=== PATIENT | male | born 1975 | race Caucasian/White ===

== ENCOUNTER 2018-06-20 15:08 | Outpatient (CLI) | payer OTHER, SELFPAY ==
[2018-06-20 15:22] VITALS: BMI 41.4
[2018-06-20 15:40] VITALS: BP 135/89; PULSE 53; TEMP 36.9
[2018-06-20 15:45] LABS: Basophils % 0.2 % (0.1-2.0); Eosinophils # 0.2 K/mm3 (0.0-0.4); Eosinophils % 1.4 % (0.1-12.0); Hematocrit 44.1 % (42.0-52.0); Hemoglobin 14.7 g/dL (14.1-18.0); Lymphocytes # 1.1 K/mm3 (0.7-4.5); Lymphocytes % 10.9 K/mm3 (10-50); Mean Corpuscular HGB Conc 33.3 g/dL (31.8-35.4); Mean Corpuscular Hemoglobin 28.7 pg (27.0-31.2); Mean Corpuscular Volume 86.2 fl (80-94); Mean Platelet Volume 7.9 fl (7.4-10.4); Monocytes # 0.5 K/mm3 (0.1-1.0); Monocytes % 4.5 % (1.7-9.3); Neutrophils # 8.7 K/mm3 (1.8-7.8); Platelet Count 215 K/mm3 (142-424); Red Blood Count 5.11 M/mm3 (4.60-6.20); Red Cell Distribution Width 14.2 % (11.5-17.5); White Blood Count 10.4 K/mm3 (4.8-10.8)
[2018-06-20 15:59] LABS: Alanine Aminotransferase 36 U/L (12-78); Albumin Level 3.6 gm/dL (3.4-5.0); Albumin/Globulin Ratio 0.9 (1.1-1.8); Alkaline Phosphatase 58 U/L (46-116); Anion Gap 11.2 mEq/L (5-15); Aspartate Amino Transferase 18 U/L (15-37); Blood Urea Nitrogen 14 mg/dL (7-18); Calcium 8.8 mg/dL (8.5-10.1); Carbon Dioxide 28 mmol/L (21.0-32.0); Chloride 105 mmol/L (98-107); Creatinine Clearance Estimated 125 mL/min (0-300); Creatinine,Serum 1.55 mg/dL (0.70-1.30); Estimated Glomerular Filt Rate 49 ml/min (>60); GFR (African American) 60 ML/MIN (>60); Globulin 3.8 gm/dl (1.3-3.2); Glucose 114 mg/dL (74-106); Potassium 4.2 mmoL/L (3.5-5.1); Sodium 140 mmol/L (136-145); Total Protein,Serum 7.4 gm/dL (6.4-8.2)
[2018-06-20 16:10] VITALS: BP 165/82; PULSE 63; RESP 20
[2018-06-20 16:40] VITALS: BP 163/90; PULSE 52; RESP 18
[2018-06-20 17:10] VITALS: BP 150/97; PULSE 50; RESP 18
[2018-06-20 17:28] LABS: Microscopic, Urine URINE MICROSCOPIC (MICROSCOPIC)
[2018-06-20 17:30] LABS: Appearance,Urine CLEAR (Clear); Blood, Urine Negative (Negative); Color,Urine YELLOW (Yellow); Glucose,Urine (UA) Negative (Negative); Ketones,Urine Negative (Negative); Leukocyte Esterase,Urine Negative (Negative); Nitrate,Urine Negative (Negative); Protein,Urine Negative (Negative); Specific Gravity, Urine >= 1.030 (1.005-1.030); Urobilinogen,Urine 0.2 EU/dl (0.2)
[2018-06-20 17:40] VITALS: BP 167/78; PULSE 66; RESP 18; TEMP 36.6
[2018-06-20 17:50] LABS: Bilirubin,Urine Negative (Negative)
[2018-06-20 17:51] LABS: Bacteria,Urine 2+ /lpf; Mucus,Urine 3+ /lpf; Squamous Epithelial Cell,Urine Occasional #/hpf (0-5)
--- NOTE | 2018-06-20 18:23 | PC.NURSE ---
GAVE FLOMAX 0.4MG PO AT 1550. GAVE ZOFRAN 4MG IVP AT 1555.
== END 2018-06-20 17:50 | disposition home or self-care (01) ==
LOC: INF 15:09
PROVIDERS: PCP Internal Medicine Adolescent Medicine; Visit Provider Nurse Practitioner Family
DX: N20.0 Calculus of kidney (principal)
CPT/HCPCS: 80053; 81001; 85025; 87086; 96360; 96361; 96374; 96375; J2405

== ENCOUNTER → 2018-06-22 08:37 | Outpatient (CLI) | payer OTHER, SELFPAY ==
[2018-06-22 09:30] LABS: Basophils % 0.6 % (0.1-2.0); Eosinophils # 0.1 K/mm3 (0.0-0.4); Hematocrit 41.1 % (42.0-52.0); Hemoglobin 13.4 g/dL (14.1-18.0); Lymphocytes # 1.1 K/mm3 (0.7-4.5); Lymphocytes % 25.2 K/mm3 (10-50); Mean Corpuscular HGB Conc 32.5 g/dL (31.8-35.4); Mean Corpuscular Hemoglobin 28.4 pg (27.0-31.2); Mean Corpuscular Volume 87.3 fl (80-94); Monocytes # 0.3 K/mm3 (0.1-1.0); Monocytes % 6.6 % (1.7-9.3); Neutrophils # 2.9 K/mm3 (1.8-7.8); Neutrophils % 65.5 % (37.0-80.0); Platelet Count 177 K/mm3 (142-424); Red Cell Distribution Width 14.2 % (11.5-17.5); White Blood Count 4.4 K/mm3 (4.8-10.8)
[2018-06-22 09:38] LABS: Anion Gap 8.8 mEq/L (5-15); Blood Urea Nitrogen 16 mg/dL (7-18); Calcium 8.4 mg/dL (8.5-10.1); Carbon Dioxide 31 mmol/L (21.0-32.0); Chloride 109 mmol/L (98-107); Creatinine,Serum 1.23 mg/dL (0.70-1.30); Estimated Glomerular Filt Rate 65 ml/min (>60); GFR (African American) 78 ML/MIN (>60); Glucose 105 mg/dL (74-106); Potassium 4.8 mmoL/L (3.5-5.1); Sodium 144 mmol/L (136-145)
== END ==
PROVIDERS: PCP Nurse Practitioner Family; Visit Provider Nurse Practitioner Family
DX: N20.0 Calculus of kidney (principal)
CPT/HCPCS: 36415; 80048; 85025

== ENCOUNTER → 2019-06-10 15:02 | Outpatient (POV) | payer OTHER, SELFPAY | PROVIDERS: Visit Provider Dermatology | DX: Z00.00 Encounter for general adult medical examination without abnormal findings (principal) ==

== ENCOUNTER → 2020-10-12 15:53 | Outpatient (POV) | payer OTHER, SELFPAY | PROVIDERS: Visit Provider Dermatology | DX: Z00.00 Encounter for general adult medical examination without abnormal findings (principal) ==

== ENCOUNTER 2023-09-12 23:24 | Emergency (ER) | payer BC, SELFPAY ==
[2023-09-12 23:31] VITALS: BP 157/102; PULSE 87; RESP 18; TEMP 36.6; O2SAT 97; BMI 38.5
--- NOTE | 2023-09-12 23:32 | CT_ITS ---
PROCEDURE INFORMATION: Exam: CT Abdomen And Pelvis With Contrast Exam date and time: 09/12/2023 11:46 PM Age: 47 years old Clinical indication: Abdominal pain; Prior surgery; Surgery date: 6+ months; Surgery type: Appendectomy; Patient HX: States abd pain, pain in the center of his back. TECHNIQUE: Imaging protocol: Computed tomography of the abdomen and pelvis with contrast. Total images: 366 Radiation optimization: All CT scans at this facility use at least one of these dose optimization techniques: automated exposure control; mA and/or kV adjustment per patient size (includes targeted exams where dose is matched to clinical indication); or iterative reconstruction. Contrast material: ISOVUE; Contrast volume: 75 ml; Contrast route: INTRAVENOUS (IV); REPORTING DATA: Count of CT and Cardiac NM exams in prior 12 months: This patient has received 0 known CTs and 0 known cardiac nuclear medicine studies in the 12 months prior to the current study. COMPARISON: CR Chest 07/12/2022 10:46 PM FINDINGS: Lungs: Minor dependent bibasilar atelectasis. No airspace consolidation. Calcified bibasilar pulmonary granuloma. Heart: Normal heart size. Coronary arteries: Moderate coronary artery calcifications. Liver: Normal. No mass. Gallbladder and bile ducts: Cholelithiasis without secondary signs of acute cholecystitis. No biliary ductal dilatation. Pancreas: Normal. No ductal dilation. Spleen: Normal. No splenomegaly. Adrenal glands: Normal. No mass. Kidneys and ureters: 5 mm nonobstructing upper pole right renal calculus. No hydronephrosis. Unremarkable left kidney. 10 mm exophytic right renal cortical cyst. No ureteral stones. Stomach and bowel: Unremarkable stomach and duodenum. No ileus or bowel obstruction. Unremarkable small bowel. Unremarkable terminal ileum. Unremarkable colon. Collapsed rectum. Appendix: Status post appendectomy. Intraperitoneal space: Unremarkable. No free air. No significant fluid collection. Vasculature: Abdominal aorta is normal in caliber. Major abdominal vessels enhance appropriately. Lymph nodes: Unremarkable. No enlarged lymph nodes. Urinary bladder: Collapsed bladder. Reproductive: Nonenlarged prostate Bones/joints: No acute osseous abnormality. Mild degenerative changes thoracolumbar spine. No concerning bone lesions. Soft tissues: Minor gynecomastia. Fat containing bilateral inguinal hernias, right greater than left. IMPRESSION: 1. Cholelithiasis without secondary signs of acute cholecystitis. If acute gallbladder symptoms, recommend follow-up ultrasound. 2. Right nephrolithiasis without obstructive uropathy. 3. Moderate right and small left fat containing inguinal hernias. No bowel loop involvement. 4. Additional chronic and incidental findings. COMMENTS: Consistent with the [employer]'s Incidental Findings Committee white paper (J Am Olman Radiol 2018): Any incidental renal lesion less than 1 cm or classified as too small to characterize, or any incidental cystic renal lesion characterized as simple-appearing, is likely benign. No follow-up imaging is recommended for these lesions per consensus recommendations based on imaging criteria.
[2023-09-13 00:47] VITALS: BP 130/84; PULSE 70; RESP 18; TEMP 36.7; O2SAT 94
--- NOTE | 2023-09-13 02:02 | HMH.EDGENADL ---
Discharge Plan Disposition Patient Disposition: Home, Self-Care Condition: Good Prescriptions Prescriptions: No Action tamsulosin 0.4 MG Cap.Er.24h 0.4 mg PO HS ondansetron HCl [Zofran] 4 MG Tablet 4 mg PO Q8HP PRN (Reason: Nausea And Vomiting) Qty: 10 0RF ketorolac 10 MG Tablet 10 mg PO Q6H 5 Days Qty: 20 0RF Referrals Follow up/Referrals: Rik Celeste MD [Primary Care Provider] - See instructions Clinical Impressions Clinical Impression: Abdominal pain Instructions Patient Instructions: Acute Abdominal Pain Discharge ED Provider: Parris Yap General Adult HPI General Stated complaint: back pain, abd pain Time Seen by Provider: 09/12/23 23:26 History of Present Illness HPI narrative: 47-year-old male with no significant past medical history aside from an appendectomy who presents to the ED with complaints of right lower quad abdominal pain and right flank pain.? Patient notes that the pain started this morning and has progressively worsened through the day.? Patient describes the pain as a sharp stabbing pain.? Patient notes a decreased appetite. ?Patient endorses nausea, but no vomiting or diarrhea.? Last bowel movement this afternoon.? No dysuria, hematuria, difficulty urinating.? Patient has a history of kidney stones and notes this pain is different. Related Data Home Medications Medication Instructions Recorded Confirmed tamsulosin 0.4 mg capsule 0.4 mg PO HS Kidney stones 06/20/18 06/20/18 Previous Rx's Medication Instructions Recorded ketorolac 10 mg tablet 10 mg PO Q6H 5 days ##20 08/26/18 ondansetron HCl 4 mg tablet 4 mg PO Q8HP PRN Nausea And 08/26/18 (Zofran) Vomiting ##10 Allergies Allergy/AdvReac Type Severity Reaction Status Date / Time No Known Allergies Allergy Verified 08/26/18 08:04 [facility] Disclaimer: The information contained in this section may have been updated after the patient was seen, as this information can be updated by other users. Social History Smoking Status: Former smoker alcohol intake: never current occupational status: employed Travel in the last 8 weeks: None ROS Obtained: Yes All systems reviewed & no additional complaints except as documented Physical Exam General General appearance: alert and in no apparent distress Head Head exam: atraumatic, normocephalic and normal inspection Eye Eye exam: Present normal appearance, PERRL and EOMI; Absent scleral icterus or nystagmus ENT ENT exam: Present normal exam, mucous membranes moist and normal external ear exam Neck Neck exam: Present normal inspection, full ROM and trachea midline Chest Chest inspection: Present normal inspection and symmetric chest wall rise; Absent tenderness Respiratory Respiratory exam: Present normal lung sounds bilaterally; Absent respiratory distress, wheezes or accessory muscle use Cardiovascular Cardiovascular exam: Present regular rate, normal rhythm and normal heart sounds Abdominal Exam Abdominal exam: Present soft and tenderness (TTP in RLQ); Absent distention, guarding, rebound, rigidity, trauma, ascites or pulsatile mass exam: Present deferred Extremities Exam Extremities exam: Present normal inspection and full ROM; Absent tenderness Back Exam Back exam: Present normal inspection and full ROM; Absent tenderness Neurological Exam Neurological exam: Present alert, oriented X3, normal gait and motor sensory deficit Psychiatric Psychiatric exam: Present normal affect and normal mood Skin Skin exam: Present warm, dry and normal color Medical Decision Making Medical Records Medical records reviewed: Yes I reviewed the patient's medical records. Mati Inquiry Pt receiving controlled substance: No Lab Data Lab results reviewed: Yes I reviewed the patient's lab results. Medical Decision Narrative: In summary, 47-year-old male with no significant past medical history aside from an appendectomy who presents to the ED with
[2023-09-13 02:08] VITALS: BMI 38.5
[2023-09-13 03:06] LABS: Appearance,Urine CLEAR (Clear); Bilirubin,Urine Negative (Negative); Blood, Urine Negative (Negative); Color,Urine YELLOW (Yellow); Glucose,Urine (UA) Negative (Negative); Ketones,Urine Negative (Negative); Leukocyte Esterase,Urine Negative (Negative); Microscopic, Urine URINE MICROSCOPIC (MICROSCOPIC); Nitrate,Urine Negative (Negative); PH,Urine 6.5 (5.0-8.5); Protein,Urine Negative (Negative); Specific Gravity, Urine 1.025 (1.005-1.030); Squamous Epithelial Cell,Urine Occasional #/hpf (0-5)
[2023-09-13 03:08] LABS: Alanine Aminotransferase 28 U/L (12-78); Albumin Level 4.5 g/dl (3.5-5.0); Albumin/Globulin Ratio 1.3 (1.1-1.8); Alkaline Phosphatase 64 U/L (38-126); Anion Gap 10.1 mEq/L (5-15); Aspartate Amino Transferase 30 U/L (17-59); Bilirubin,Total 0.9 mg/dl (0.2-1.3); Blood Urea Nitrogen 13 mg/dl (9-20); Calcium 8.7 mg/dl (8.4-10.2); Carbon Dioxide 26 mmol/L (22.0-30.0); Chloride 103 mmol/L (98-107); Creatinine Clearance Estimated 176 mL/min (50-200); Estimated Glomerular Filt Rate 80 ml/min (>60); GFR (African American) 97 ML/MIN (>60); Globulin 3.6 g/dL (1.3-3.2); Glucose 140 mg/dl (74-100); Lipase 125 U/L (23-300); Potassium 4.1 mmoL/L (3.5-5.1); Sodium 135 mmol/L (136-145); Total Protein,Serum 8.1 g/dl (6.3-8.2)
[2023-09-13 03:12] LABS: Lymphocytes % 9.5 % (10-50); Mean Corpuscular HGB Conc 33.4 g/dL (31.8-35.4); Mean Corpuscular Hemoglobin 29.2 pg (27.0-31.2); Mean Corpuscular Volume 87.3 fl (80-94); Mean Platelet Volume 8.3 fl (7.4-10.4); Monocytes % 4.2 % (1.7-9.3); Neutrophils % 84.2 % (37.0-80.0); Platelet Count 231 K/mm3 (142-424); Red Blood Count 5.49 M/mm3 (4.60-6.20); Red Cell Distribution Width 14.3 % (11.5-17.5); White Blood Count 10.7 K/mm3 (4.8-10.8)
[2023-09-13 03:13] LABS: Basophils # 0.1 K/mm3 (0-0.2); Basophils % 0.5 % (0.1-2.0); Eosinophils # 0.1 K/mm3 (0.0-0.4); Monocytes # 0.5 K/mm3 (0.1-1.0)
== END 2023-09-13 00:47 | disposition home or self-care (01) ==
PROVIDERS: Emergency Provider Emergency Medicine; PCP Internal Medicine Adolescent Medicine
DX: R10.31 Right lower quadrant pain (principal); R63.0 Anorexia; R11.0 Nausea; Z87.891 Personal history of nicotine dependence
CPT/HCPCS: 74177; 80053; 81001; 83605; 83690; 85025; 96361; 96374; 96375; 99285; J2405; Q9967

== ENCOUNTER 2023-12-26 16:13 | Outpatient (CLI) | payer BC, SELFPAY ==
[2023-12-26 16:17] LABS: Microscopic, Urine URINE MICROSCOPIC (MICROSCOPIC)
[2023-12-26 16:30] LABS: Appearance,Urine CLEAR (Clear); Bilirubin,Urine Negative (Negative); Blood, Urine Negative (Negative); Color,Urine YELLOW (Yellow); Glucose,Urine (UA) Negative (Negative); Ketones,Urine Negative (Negative); Leukocyte Esterase,Urine Negative (Negative); Nitrate,Urine Negative (Negative); Protein,Urine Negative (Negative); Specific Gravity, Urine >= 1.030 (1.005-1.030); Urobilinogen,Urine 0.2 EU/dl (0.2)
[2023-12-26 16:37] LABS: Basophils # 0.1 K/mm3 (0-0.2); Basophils % 1.3 % (0.1-2.0); Eosinophils # 0.2 K/mm3 (0.0-0.4); Eosinophils % 2.2 % (0.1-12.0); Hematocrit 47.1 % (42.0-52.0); Hemoglobin 15.6 g/dL (14.1-18.0); Lymphocytes # 1.5 K/mm3 (0.7-4.5); Lymphocytes % 21.3 % (10-50); Mean Corpuscular Hemoglobin 29.2 pg (27.0-31.2); Mean Corpuscular Volume 88.5 fl (80-94); Mean Platelet Volume 8.8 fl (7.4-10.4); Monocytes # 0.4 K/mm3 (0.1-1.0); Monocytes % 5.7 % (1.7-9.3); Neutrophils % 69.5 % (37.0-80.0); Platelet Count 230 K/mm3 (142-424); Red Blood Count 5.33 M/mm3 (4.60-6.20); Red Cell Distribution Width 15.4 % (11.5-17.5); White Blood Count 7.3 K/mm3 (4.8-10.8)
--- NOTE | 2023-12-26 16:51 | ECG_ITS ---
APPROVED REPORT Exam: Resting ECG HR:72 bpm ECG Measurements Heart Rate 72 AXES WI 194 P 60 QRSd 101 QRS 38 QT 421 T 49 QTc 446 Conclusion SINUS RHYTHM WITH OCCASIONAL VENTRICULAR PREMATURE COMPLEXES NONSPECIFIC T-WAVE ABNORMALITY BORDERLINE ECG UNCONFIRMED REPORT Electronically signed by : Rik Celeste MD 12/26/2023 21:09:19
[2023-12-26 17:37] LABS: Chloride 104 mmol/L (98-107); Potassium 4.4 mmoL/L (3.5-5.1); Sodium 138 mmol/L (136-145)
[2023-12-26 17:40] LABS: Anion Gap 10.4 mEq/L (5-15); Blood Urea Nitrogen 15 mg/dl (9-20); Calcium 9.2 mg/dl (8.4-10.2); Carbon Dioxide 28 mmol/L (22.0-30.0); Estimated Glomerular Filt Rate 65 ml/min (>60); GFR (African American) 78 ML/MIN (>60); Glucose 96 mg/dl (74-100)
== END 2023-12-26 23:59 ==
LOC: LAB 16:13
PROVIDERS: PCP Internal Medicine Adolescent Medicine; Visit Provider Surgery
DX: K40.20 Bilateral inguinal hernia, without obstruction or gangrene, not specified as recurrent (principal)
CPT/HCPCS: 36415; 80048; 81001; 85025; 93005

== ENCOUNTER 2023-12-31 06:02 | Day surgery (SDC) | payer BC, SELFPAY ==
[2023-12-28 09:01] VITALS: BMI 42.8
[2023-12-31] VITALS (11 sets, daily range): BP systolic 114–165; BP diastolic 71–104; PULSE 66–82; RESP 16–19; TEMP 35.9–36.6; O2SAT 92–97
[2023-12-31] MEDS: LACTATED RINGERS 1000ML 1,000 ML 100 ML IV (06:33)
--- NOTE | 2023-12-31 06:55 | EXP.GEN.HP ---
HPI HPI HPI: Patient is a 48-year-old male who presents for inguinal hernia repair. He has had previous laparoscopic appendectomy. He had presented to the emergency department on 09/13/2023 with right lower quadrant sharp stabbing pain. At that time he underwent CT scan. This revealed incidental cholelithiasis. He also had right nephrolithiasis without obstruction. He had a moderate right and small left inguinal hernia. Initially the patient was asymptomatic. 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 He states that over the past couple weeks he has had increased discomfort particularly with activity at work in the right groin area with swelling going down into his right testicle. [facility] Disclaimer: The information contained in this section may have been updated after the patient was seen, as this information can be updated by other users. Medical History No significant past medical history Surgical History H/O removal of cyst History of appendectomy Family History Family history of diabetes mellitus Social History (Updated 12/31/23 @ 06:24 by Ester Li RN) Smoking Status: Never smoker alcohol intake: never current occupational status: employed Travel in the last 8 weeks: None Review of Systems Review of Systems Review of systems:: pertinent systems reviewed and negative unless documented below Meds Home Medications and Allergies Home Medications Medication Instructions Recorded Confirmed Type No Known Home Medications 12/28/23 12/31/23 History New Prescriptions to Start Prescriptions: Allergies Allergy/AdvReac Type Severity Reaction Status Date / Time No Known Allergies Allergy Verified 12/31/23 06:20 Exam Data for Last 24 hours Vital signs and Labs for Last 24 Hours: Temp Pulse Resp BP Pulse Ox O2 Del Method 97.8 F 66 18 145/104 H 97 Room Air 12/31/23 06:22 12/31/23 06:22 12/31/23 06:22 12/31/23 06:22 12/31/23 06:22 12/31/23 06:22 I & O for Last 24 hours: Intake & Output 12/28/23 12/29/23 12/30/23 12/31/23 11:59 11:59 11:59 11:59 Weight 325 lb Constitutional Constitutional: no acute distress *Routine HEENT Exam Head: Present normocephalic Eye: Present EOMI and PERRL ENT: Present mucous membranes moist *Routine Neck Exam Neck: Present supple; Absent lymphadenopathy *Routine Respiratory Exam Respiratory: Present CTA bilaterally *Routine Cardiovascular Exam Cardiovascular: Present RRR *Routine Abdominal Exam Abdominal: Present soft, normoactive bowel sounds and hernia; Absent tenderness Comments: He has a moderately large likely indirect right inguinal hernia with a small to moderate hernia on the left. *Routine Rectal Exam Rectal:: deferred *Routine Genitalia Exam Genitalia:: deferred *Routine Extremities Exam Extremities: Absent cyanosis, clubbing or edema *Routine Skin Exam Skin: Present warm; Absent rash *Routine Neurological Exam Neurological: Present alert and oriented X3 Assessment and Plan *Assessment and plan (1) Bilateral inguinal hernia: Status: Acute Category: Medical Code(s): K40.20 - Bilateral inguinal hernia, without obstruction or gangrene, not specified as recurrent Plan I had previously discussed the options with the patient. He would like to pursue repair. Given the bilateral nature I feel attempt at laparoscopic repair with concentration on the larger more symptomatic right inguinal hernia would be the best plan of action. Options and nature of the proposed procedure along with associated risks and expected outcome of been thoroughly explained to the patient. Plan will be for laparoscopic with possibly open bilateral inguinal hernia repair with concentration on the right side.
[2023-12-31] MEDS: CEFAZOLIN SODIUM 2 GM in 0.9 % SODIUM CHLORIDE 100 ML IV ×3 (07:45→16:15)
[2023-12-31] MEDS: ROPIVACAINE 0.5% 30ML VIAL 150 MG (08:05)
[2023-12-31] MEDS: LIDOCAINE 1% 20ML MDV 20 ML (08:05)
--- NOTE | 2023-12-31 08:07 | P.PNANES_ITS ---
[facility] Disclaimer: The information contained in this section may have been updated after the patient was seen, as this information can be updated by other users. Medical History No significant past medical history Surgical History H/O removal of cyst History of appendectomy Family History Other Family history of diabetes mellitus Social History (Updated 12/31/23 @ 06:24 by Ester Li RN) Smoking Status: Never smoker alcohol intake: never substance use type: denies use current occupational status: employed Travel in the last 8 weeks: None [facility] Anesthesia Checklist Patient Identification Patient Identification: Verbal (Name & ) Structural Data Admitted From: Home Planned Operative Procedure/s: hernia repair Consent for Planned Operative Procedure(s) Verified: Yes NPO Status Verified Time NPO: 00:00 Additional verifications Anesthesia Reactions: No Hx Blood Transfusions: No Blood Transfusion Reaction: No Airway Assessment Mallampati Score:: Class III C-Spine Mobility Assessed: Yes TMJ Mobility Assessed: Yes Dentition: Good Dentition Neurological Assessment Level of Consciousness: Awake, Alert and Appropriate Anesthesia Plan Anesthesia Risk discussed: Yes Anesthesia Plan: Verified ASA Class: II Anesthesia Type: General
--- NOTE | 2023-12-31 10:35 | SUR.OPER ---
Updated Bailey- at 1035am. Pt is doing well, hernia is complex and will continue to update as we go along.
--- NOTE | 2023-12-31 13:27 | SUR.OPER ---
Updated family again at 12 and 1330.
--- NOTE | 2023-12-31 13:58 | SUR.OPER ---
Decision to go open at 1351 was made. Family updated and agreeable to the plan.
--- NOTE | 2023-12-31 16:23 | SUR.OPER ---
updated family at 1534
--- NOTE | 2023-12-31 17:06 | EXP.ANES.I ---
[facility] Anesthesia Record Part I Anesthesia Record I Intake, IV Amount: 3,400 Hydration: Adequate Estimated blood loss (mL): 150 Urine output (mL): 750 Blood Products used (#): none Blood Pressure: 114/74 SaO2: 95 Pulse Rate: 82 Airway Patency: Patent Respiratory Rate: 16 Temperature: 96.6 F Patient is:: Awake, Nasal O2 (10L to oral airway), Oral/Nasal airway (9.0 oral airway) and Stable Stable to PACU at:: 16:55
[2023-12-31] MEDS: MEPERIDINE 25MG/ML 1ML SYRINGE 25 MG IV (17:21)
--- NOTE | 2023-12-31 17:33 | P.OP_ITS ---
Date of procedure: 12/31/23 Pre-op Diagnosis:: Bilateral inguinal hernias Post-op Diagnosis:: Same Procedure performed:: Laparoscopy with attempt at bilateral inguinal hernia repair Open repair of right inguinal hernia Surgeon:: Madan Calero MD SUPERVISOR ESTIMATOR AND DRAFTER:: Other Anesthesia: JAMARCUS Estimated blood loss (mL): 50 Clinical Note:: Patient is a 48-year-old male who presents for inguinal hernia repair. He has had previous laparoscopic appendectomy. He had presented to the emergency department on 09/13/2023 with right lower quadrant sharp stabbing pain. At that time he underwent CT scan. This revealed incidental cholelithiasis. He also had right nephrolithiasis without obstruction. He had a moderate right and small left inguinal hernia. Initially the patient was asymptomatic. 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 He states that he has had increased discomfort particularly with activity at work in the right groin area with swelling going down into his right testicle. His larger right inguinal hernia was symptomatic and the incidental small left inguinal hernia was asymptomatic. Given the bilateral nature was felt that plan would be to proceed with attempt at laparoscopic repair for possible bilateral repair with concentration on the right side with possible open repair pair of the right side as it is the only side that is symptomatic. Operative findings:: Patient had a moderately large right inguinal hernia with very thickened chronically incarcerated hernia sac. Laparoscopic investigation of the left side was not able to be performed. Operative note:: Consent was obtained patient was taken to the operating room. He was given preoperative intravenous antibiotics. In the operating room he was placed in a supine position. General anesthesia was induced via endotracheal tube. Florez catheter was placed. Abdomen was prepped and draped in the standard surgical fashion. Subumbilical skin incision was made. Dissection was carried down through subcutaneous tissues to the anterior rectus fascia. Anterior rectus fascia was incised to the right of the linea alba ultimately. Preperitoneal space was entered. Dissecting balloon trocar was inserted and preperitoneal space was dissected free. This was observed laparoscopically. Dissecting balloon trocar was then removed and replaced with the structural balloon trocar. CO2 pneumo preperitoneum was achieved. A couple 5 mm trocars were inserted in the midline inferior to the umbilicus. Attention was turned to the right inguinal area. There was a large amount of preperitoneal fatty tissues. Homero 's ligament was identified as well as the pubic tubercle which was cleaned free. It was difficult to discern hernia sac from cord structures for quite some time. Ultimately after very prolonged dissection inferior epigastric vessels were identified. Dissection was carried out identifying chronically incarcerated hernia sac. The contents of the hernia sac were able to be manipulated and reduced leaving it thickened hernia sac in place. Dissection was carried out over several hours. There were a couple of small tears in the peritoneum of the hernia sac which were closed with 0 loop PDS. However the hernia sac was then opened and found to be extremely thickened. Very prolonged dissection was carried out. In order to evacuate the intra-abdominal gas from the disruption of the hernia sac a 5 mm trocar was inserted in the left upper quadrant into the peritoneal cavity. This allowed for venting of intraperitoneal gas. Additional prolonged dissection was carried out in the thickened hernia sac was then able to be dissected free from the cord. Ultimately after several hours plan was made to proceed with open repair. Pneumoperitoneum was evacuated. A right inguinal incision was made superior to landmarks identifying the inguinal ligament. Dissection was carried down through subcutaneous tissues and Matthew's fascia using electrocautery. Exposure was achieved with the external oblique muscle. This was opened along length of its fibers. Underlying cord structures were identified and found to be markedly thickened. Ilioinguinal nerve was identified and preserved. Cord structures were dissected free from the floor and encircled with a Jonelle drain. Very prolonged dissection was carried out at the inguinal ligament identifying the hernia sac. It was densely adherent and attached to the cord structures. It was dissected free with some blunt dissection and some use of electrocautery. Site of previous opening of the hernia sac laparoscopically was identified. Hernia sac was dissected free ultimately from the cord structures down to the internal ring. The hernia sac had already been opened laparoscopically as stated above. Hernia sac was then highly ligated with a 2-0 Vicryl pursestring suture. Extraneous peritoneum of the hernia sac was excised and sent off the table as a hernia sac. Plan was made for repair with mesh prefix plug and onlay mesh. Initially the mesh prefix plug was inserted into the region of the internal ring and sutured in place using PDS. However this became disrupted and found to be counterproductive and hernia repair ultimately and was removed. The hernia was repaired suturing the needed Prolene mesh on 2 the Homero's ligament, shelving edge of the inguinal ligament, and transversalis with multiple interrupted 2-0 PDS sutures. Ultimately the 2 tails of the mesh were used to encircle the cord structures and sutured to 1 another to reconstruct the internal ring. Ilioinguinal nerve was returned to its normal anatomic position. Wound was irrigated. Local anesthetic was infiltrated. External oblique muscle was closed over the cord structures and ilioinguinal nerve with a running 2-0 Vicryl. Matthew's fascia was closed with running 2-0 Vicryl. Skin was closed with 4-0 Monocryl in a running subcuticular fashion. Fascia at the umbilicus was closed with a 0 Vicryl suture. At this time attention was turned to completion intra-abdominal laparoscopy. CO2 pneumoperitoneum was reestablished through the left subcostal trocar site. 5 mm 30 degree laparoscope was inserted. Intra-abdominal surveillance was carried out and the peritoneum was intact at the site of the hernia repair and there was minor preperitoneal bruising but overall an apparent satisfactory result. CO2 pneumoperitoneum was then evacuated and all trocars removed. Laparoscopic trocar sites were closed with 4-0 Monocryl. Dermabond and dressings were applied. Condition: stable Disposition: PACU Complications:: None immediately apparent
[2023-12-31 18:50] LABS: Microscopic,Cath URINE MICROSCOPIC (MICROSCOPIC)
[2023-12-31 18:57] LABS: Appearance,Urine/Cath CLEAR (Clear); Bilirubin,Cath Negative (Negative); Blood, Urine/Cath Negative (Negative); Color,Urine/Cath YELLOW (Yellow); Glucose,Urine/Cath (UA) Negative (Negative); Ketones,Urine/Cath Negative (Negative); Leukocyte Esterase,Cath Negative (Negative); Nitrate,Cath Negative (Negative); PH,Urine/Cath 6.5 (5.0-8.5); Protein,Urine/Cath Negative (Negative); Urobilinogen,Cath 0.2 EU/dl (0.2)
--- NOTE | 2024-01-01 07:28 | EXP.ANES.II ---
[facility] Anesthesia Record Part II Anesthesia Record Part II Discharge Time: 17:20 Destination: Surgical Day Care (OP Surgery) PACU nurse assessment reviewed?: Yes Patient Condition:: Good Anesthesia Complications:: None Swallowing reflex intact?: Yes Airway Patency: Patent Cyanosis?: No Blood Pressure: 165/98 SaO2: 95 Respiratory Rate: 16 Pulse Rate: 82 Temperature: 97.6 F Mental Status: Alert & Oriented Pain level:: 7 Nausea and/or vomitting:: None Intake, IV Amount: 0 Hydration: Adequate
[2024-01-01 07:30] VITALS: BP 165/98; PULSE 82; RESP 16; TEMP 36.4; O2SAT 95
== END 2023-12-31 18:35 | disposition home or self-care (01) ==
PROVIDERS: PCP Internal Medicine Adolescent Medicine; Visit Provider Surgery
PROC: (CPT 49650; principal; 2023-12-31 07:30)
DX: K40.20 Bilateral inguinal hernia, without obstruction or gangrene, not specified as recurrent (principal); K80.80 Other cholelithiasis without obstruction; N20.0 Calculus of kidney; Z53.31 Laparoscopic surgical procedure converted to open procedure
CPT/HCPCS: 49507; 81001; 96374; J3490; J2405

== ENCOUNTER 2024-10-07 12:45 | Outpatient (CLI) | payer BC, SELFPAY ==
--- NOTE | 2024-10-07 12:46 | CT_ITS ---
FINAL REPORT TECHNIQUE: Thin section axial images were obtained through the abdomen after intravenous contrast. Reconstruction images were obtained from the axial data. Exam was performed using dose reduction techniques. CLINICAL HISTORY: abdominal pain. F/u hernia sx- December 2023. COMPARISON: 09/12/2023 FINDINGS: The lung bases are clear. Fatty infiltration of the liver is present. Gallstones are noted in the gallbladder. The spleen, adrenal glands, and pancreas are unremarkable. A nonobstructing right renal stone is present. There is also a small right renal cyst present. Abdominal GI tract is without acute abnormality. No evidence of small bowel obstruction is seen. There is no abdominal lymphadenopathy or ascites. The pelvic solid organs are unremarkable. The pelvic portions of the GI tract are without acute abnormality. The appendix is surgically absent. There is no pelvic lymphadenopathy or ascites. No acute osseous abnormalities identified. Postoperative changes of the right inguinal hernia repair are present. There is a small fat-containing left inguinal hernia, stable when compared with the prior CT of 2022. No adenopathy is noted. IMPRESSION: Nonobstructing right renal stone remains present. Fatty infiltration of the liver, along with cholelithiasis. Postoperative change right inguinal hernia repair, with a stable small fat-containing left inguinal hernia. Reviewed, Interpreted and Dictated by Rose Marie Hines MD Transcribed by Marbella Staples Authenticated and [facility]
[2024-10-07] MEDS: SODIUM CHLORIDE 0.9% 10ML SYR (RAD ONLY) 10 ML IV (13:41)
[2024-10-07] MEDS: IOPAMIDOL-370 (76%);100ML BOTTLE 75 ML IV (13:41)
== END 2024-10-07 23:59 | disposition home or self-care (01) ==
LOC: RAD 12:46
PROVIDERS: PCP Internal Medicine Adolescent Medicine; Visit Provider Surgery
DX: K40.20 Bilateral inguinal hernia, without obstruction or gangrene, not specified as recurrent (principal)
CPT/HCPCS: 74177; Q9967